=== PATIENT | male | born 1985 | race Caucasian/White ===

== ENCOUNTER 2025-03-04 17:47 | Emergency (ER) | payer OTHER ==
[~2025-03-04] VITALS: Ht 185.4 cm; Wt 85.7 kg
[2025-03-04] MEDS ORDERED: OMEPRAZOLE MAGN20 MG PO (18:13)
[2025-03-04] MEDS ORDERED: [UNRECOGNIZED DRUG - OTHER] OP ONE (18:25)
[2025-03-04] MEDS ORDERED: PROPARACAINE OP ONE (18:25)
[2025-03-04] MEDS ORDERED: LISSAMINE GREEN 1.5 MG STRIP OP ONE (18:25)
[2025-03-04] MEDS ORDERED: Tetracaine Hydrochloride 0.5% 4 ML BOT OPH ONE (18:35)
[2025-03-04] MEDS ORDERED: Ciprofloxacin Hydrochloride 0.3% OPHTHLAMIC BOTTLE OPH ONE (18:55)
[2025-03-04] MEDS ORDERED: KETOROLAC TROMETH. 0.5% OPTH SOL OPH SCH (22:00)
== END 2025-03-04 19:14 | disposition home or self-care (01) ==
LOC: ED 17:47
DX: S05.02XA Injury of conjunctiva and corneal abrasion without foreign body, left eye, initial encounter (principal); K21.9 Gastro-esophageal reflux disease without esophagitis; W22.8XXA Striking against or struck by other objects, initial encounter; Y93.89 Activity, other specified; Y92.89 Other specified places as the place of occurrence of the external cause; Y99.0 Civilian activity done for income or pay